=== PATIENT | male | born 1965 | race African-American/Black ===

== ENCOUNTER 2024-06-26 10:17 | Emergency (ER) | payer OTHER ==
[~2024-06-26] VITALS: Ht 172.7 cm; Wt 80.0 kg
[2024-06-26 10:34] VITALS: O2SAT 98
[2024-06-26] MEDS: ACETAMINOPHEN WITH CODEINE 300/30MG TABLET PO ONE (13:07)
[2024-06-26] MEDS: LIDOCAINE HCL/PF 1% 10 MG/ML 5ML VIAL INFIL ONE (13:07)
[2024-06-26 13:20] LABS: HEMATOCRIT. 42.7 % (42.0-52.0); MEAN CORPUSCULAR HEMOGLOBIN 29.8 pg (28.0-32.0); MEAN CORPUSCULAR HGB CONC 32.8 g/dL (31.0-37.0); MEAN CORPUSCULAR VOLUME 90.8 fL (80.0-94.0); MEAN PLATELET VOLUME 8.6 fl (7.4-10.4); PLATELET 315 x1000/uL (130-400); RED CELL DISTRIBUTION WIDTH 13.5 % (11.6-14.6); WHITE BLOOD COUNT 15.8 x1000/uL (4.5-11.0)
[2024-06-26 13:23] LABS: CHLORIDE 105 mEq/L (98-107); POTASSIUM 4.3 mEq/L (3.5-5.1); SODIUM 134 mEq/L (136-145)
[2024-06-26 13:24] LABS: CARBON DIOXIDE 24 mEq/L (21-32)
[2024-06-26 13:25] LABS: CALCIUM 9.4 mg/dL (8.7-10.4)
[2024-06-26 13:27] LABS: DIFFERENTIAL COMMENT 1
[2024-06-26 13:29] LABS: GLUCOSE 206 mg/dL (70-105); UREA NITROGEN BLOOD 9 mg/dL (9-23)
[2024-06-26 13:34] LABS: INR 0.9; PROTHROMBIN TIME 10.2 sec (9.6-11.0)
[2024-06-26 16:04] LABS: PLATELET ESTIMATE NORMAL
[2024-06-26] MEDS ORDERED: IBUP-2030 MT (16:36)
[2024-06-26] MEDS ORDERED: HYDR-4001 MT (16:36)
[2024-06-26] MEDS: BACITRACIN 14GM TUBE TOP ONE (17:17)
[2024-06-26 17:45] VITALS: BP 125/55; PULSE 82; RESP 16; TEMP 37.00296; O2SAT 98
== END 2024-06-26 18:01 | disposition home or self-care (01) ==
LOC: ER 10:17 → CANBEDREQ 16:55 → ER 18:01
DX: S22.41XA Multiple fractures of ribs, right side, initial encounter for closed fracture (principal); S81.811A Laceration without foreign body, right lower leg, initial encounter; E11.9 Type 2 diabetes mellitus without complications; V49.49XA Driver injured in collision with other motor vehicles in traffic accident, initial encounter; Y93.89 Activity, other specified; Y92.89 Other specified places as the place of occurrence of the external cause; Y99.8 Other external cause status
CPT/HCPCS: 80048; 85025; 85610; 36415; 71101; 73590; 74176; 12002; 99284; J3490; Z7610 ×2